=== PATIENT | female | born 2000 | race African-American/Black ===

== ENCOUNTER 2020-08-14 19:23 | Observation (INO) | payer OTHER, SELFPAY ==
[2020-08-14] VITALS (7 sets, daily range): BP systolic 91–142; BP diastolic 70–87; PULSE 91–115; BMI 33.7
--- NOTE | 2020-08-14 19:34 | OBADM ---
This patient, Lulu Lira, admitted to the OB room OB Post 117 for observation. Patient/family oriented to hospital policies and general routines including ID bracelet, bed and alarms, visiting hours, pain management, procedures, bathroom and other care routines, personal items, smoking policy, room service/diet, and visiting hours. Patient/Family are encouraged to report perceived risks to care and to ask questions if they do not understand what they are told or what they should do.
[2020-08-14 20:39] LABS: Basophils Percent Auto 0.2 % (0.2-1.2); Eosinophils Absolute Auto 0.1 K/mm3 (0-0.3); Eosinophils Percent Auto 0.9 % (0-4.4); Hematocrit 34.3 % (37.0-47.0); Hemoglobin 11.1 g/dL (12.0-15.0); Immature Granulocyte Absolute 0.07 K/mm3 (0.00-0.031); Immature Granulocyte Percent A 0.6 % (0-0.5); Lymphocytes Absolute Auto 1.72 K/mm3 (0.9-3.2); Lymphocytes Percent Auto 14.2 % (18.3-44.2); Mean Corpuscular HGB Conc 32.4 g/dl (32-36); Mean Corpuscular Hemoglobin 31.1 pg (26-34); Mean Corpuscular Volume 96.1 fl (80-100); Mean Platelet Volume 10.1 fl (7.4-10.4); Monocytes Absolute Auto 1.4 K/mm3 (0.1-0.6); Monocytes Percent Auto 11.4 % (2.6-8.5); Neutrophils Absolute Auto 8.8 K/mm3 (1.3-6.7); Neutrophils Percent Auto 72.7 % (45.5-73.1); Platelet Count Result 321 k/mm3 (150-375); Red Blood Count 3.57 M/mm3 (4.2-5.4); White Blood Count 12.1 K/mm3 (4.5-10.0)
[2020-08-14 20:41] LABS: Add Urine Microscopic? NO; Appearance Urine Clear (Clear); Bilirubin Urine Negative (Negative); Blood Urine Negative (Negative); Color Urine Straw (Yellow); Glucose Urine UA Negative (Negative); Ketones Urine Negative (Negative); Leukocyte Esterase Ur Negative LEU/UL (Negative); Nitrate Urine Negative (Negative); Protein Urine Negative (Negative); Specific Grav Ur 1.015 (1.001-1.035); Urobilinogen Urine Negative mg/dL (<2.0)
[2020-08-14 20:46] LABS: Creatinine Urine 57.4 mg/dL; Total Protein Urine Random 13 mg/dL; Ur Ttl Prot Creatinine Ratio 0.23 mg/mg (0-0.20)
[2020-08-14 20:51] LABS: Alanine Aminotransferase 14 U/L (4-35); Albumin Level 3.7 g/dL (3.7-5.6); Alkaline Phosphatase 143 U/L (45-116); Anion Gap 6 mmol/L (8-16); Aspartate Amino Transferase 21 U/L (14-36); Bilirubin,Total 0.6 mg/dL (0.2-1.3); Blood Urea Nitrogen 8 mg/dL (8-21); Calcium 9.2 mg/dL (8.9-10.7); Carbon Dioxide 25 mmol/L (22-30); Chloride 104 mmol/L (98-107); Estimated CRCL calculation 175 ml/min; Estimated Glomerular Filt Rate > 60; Glucose 94 mg/dL (65-105); Potassium 3.7 mmol/L (3.4-5.0); Sodium 135 mmol/L (134-143); Uric Acid 3.2 mg/dL (3.0-5.9)
--- NOTE | 2020-08-25 10:08 | PM.OBTRLD ---
OB - Triage/Final Diagnosis Evaluation Laboratory results: Laboratory Tests 08/14/20 08/14/20 08/14/20 20:26 20:26 20:26 WBC 12.1 H RBC 3.57 L Hgb 11.1 L Hct 34.3 L MCV 96.1 MCH 31.1 MCHC 32.4 RDW 13.0 Plt Count 321 MPV 10.1 Immature Gran % (Auto) 0.6 H Neut % (Auto) 72.7 Lymph % (Auto) 14.2 L Coffee % (Auto) 11.4 H Eos % (Auto) 0.9 Baso % (Auto) 0.2 Lymph # (Auto) 1.72 Coffee # (Auto) 1.4 H Eos # (Auto) 0.1 Baso # (Auto) 0.0 Abs Immat Gran (auto) 0.07 H Absolute Neuts (auto) 8.8 H Absolute Nucleated RBC 0.0 Nucleated RBC % 0.0 Sodium 135 Potassium 3.7 Chloride 104 Carbon Dioxide 25 Anion Gap 6 L BUN 8 Creatinine 0.50 L Estim Creat Clear Calc 175 Estimated GFR > 60 Glucose 94 Uric Acid 3.2 Calcium 9.2 Total Bilirubin 0.6 AST 21 ALT 14 Alkaline Phosphatase 143 H Total Protein 8.0 Albumin 3.7 Urine Color Straw Urine Appearance Clear Urine pH 6.0 Ur Specific [place] 1.015 Urine Protein Negative Urine Glucose (UA) Negative Urine Ketones Negative Ur Blood (Man) Negative Urine Nitrate Negative Urine Bilirubin Negative Urine Urobilinogen Negative Leukocyte Esterase Rfl Negative U Random Total Protein Urine Creatinine Protein/Creat Ratio 2 08/14/20 20:26 WBC RBC Hgb Hct MCV MCH MCHC RDW Plt Count MPV Immature Gran % (Auto) Neut % (Auto) Lymph % (Auto) Coffee % (Auto) Eos % (Auto) Baso % (Auto) Lymph # (Auto) Coffee # (Auto) Eos # (Auto) Baso # (Auto) Abs Immat Gran (auto) Absolute Neuts (auto) Absolute Nucleated RBC Nucleated RBC % Sodium Potassium Chloride Carbon Dioxide Anion Gap BUN Creatinine Estim Creat Clear Calc Estimated GFR Glucose Uric Acid Calcium Total Bilirubin AST ALT Alkaline Phosphatase Total Protein Albumin Urine Color Urine Appearance Urine pH Ur Specific [place] Urine Protein Urine Glucose (UA) Urine Ketones Ur Blood (Man) Urine Nitrate Urine Bilirubin Urine Urobilinogen Leukocyte Esterase Rfl U Random Total Protein 13 Urine Creatinine 57.4 Protein/Creat Ratio 2 0.23 H Final Diagnosis (1) Elevated blood pressure affecting in third trimester, antepartum: Code(s): O16.3 - Unspecified maternal hypertension, third trimester Status: Acute (2) Abdominal pain affecting : Code(s): O26.899 - Other specified related conditions, unspecified trimester; R10.9 - Unspecified abdominal pain Status: Acute
== END 2020-08-14 21:35 | disposition home or self-care (01) ==
PROVIDERS: Admitting Provider Obstetrics & Gynecology; Visit Provider Obstetrics & Gynecology
DX: O16.3 Unspecified maternal hypertension, third trimester (principal); O26.899 Other specified pregnancy related conditions, unspecified trimester; R10.9 Unspecified abdominal pain; Z3A.00 Weeks of gestation of pregnancy not specified
CPT/HCPCS: 36415; 80053; 81003; 82570; 84156; 84550; 85025; G0378; G0379

== ENCOUNTER 2020-10-12 09:49 | Inpatient (IN) | payer OTHER, SELFPAY ==
[2020-10-12] VITALS (96 sets, daily range): BP systolic 89–153; BP diastolic 44–109; PULSE 82–118; TEMP 36.6–37.2; O2SAT 97–100; BMI 42.0
--- NOTE | 2020-10-12 10:36 | WPDANESEPP ---
Anes - Eval Pre Procedure Procedure: labor epidural Date/Time: 10/12/20 10:36 Surgeon: Thania Salomon Preop Diagnosis: Pain during labor Pre Op Diagnosis: Labor Patient Data Age: 19 Gender: F Height: Weight: Allergies Allergy/AdvReac Type Severity Reaction Status Date / Time corn Allergy Swelling Verified 08/14/20 19:53 of Lip/Tongue/Throat shellfish derived Allergy Swelling Verified 08/14/20 19:53 of Lip/Tongue/Throat Home Medications Medication Instructions Recorded Confirmed Type Vitamin Plus Low Iron 1 tablet PO DAILY 08/14/20 08/14/20 History Patient hx anesthesia problems: none Family hx anesthesia problems: none Exam Day of Procedure 10/12/20 10:36 Patient weight: normal Heart: regular rate and rhythm Lungs: clear to auscultation and normal air movement Neurological: alert and oriented
[2020-10-12 10:40] LABS: Basophils Percent Auto 0.1 % (0.2-1.2); Eosinophils Absolute Auto 0.1 K/mm3 (0-0.3); Eosinophils Percent Auto 0.6 % (0-4.4); Hematocrit 33.2 % (37.0-47.0); Hemoglobin 10.8 g/dL (12.0-15.0); Immature Granulocyte Absolute 0.04 K/mm3 (0.00-0.031); Immature Granulocyte Percent A 0.4 % (0-0.5); Lymphocytes Absolute Auto 1.32 K/mm3 (0.9-3.2); Lymphocytes Percent Auto 13.8 % (18.3-44.2); Mean Corpuscular HGB Conc 32.5 g/dl (32-36); Mean Corpuscular Hemoglobin 29.9 pg (26-34); Mean Platelet Volume 10.1 fl (7.4-10.4); Monocytes Absolute Auto 1.4 K/mm3 (0.1-0.6); Monocytes Percent Auto 14.2 % (2.6-8.5); Neutrophils Absolute Auto 6.8 K/mm3 (1.3-6.7); Neutrophils Percent Auto 70.9 % (45.5-73.1); Platelet Count Result 350 k/mm3 (150-375); Red Blood Count 3.61 M/mm3 (4.2-5.4); Red Cell Distribution Width 13.5 % (11.5-14.5); White Blood Count 9.6 K/mm3 (4.5-10.0)
[2020-10-12] MEDS: LACTATED RINGERS 1,000 ML 125 ML IV CONT ×3 (10:43→19:07)
--- NOTE | 2020-10-12 10:52 | P.PNAN_ITS ---
Anes - Eval Pre Procedure Procedure: labor epidural Date/Time: 10/12/20 10:52 Preop Diagnosis: labor pain Pre Op Diagnosis: Labor Patient Data Age: 19 Gender: F Height: 5 ft 6 in Weight: 118 kg Last Vital Signs Pulse 96 10/12/20 10:46 BP 136/60 10/12/20 10:46 Allergies Allergy/AdvReac Type Severity Reaction Status Date / Time corn Allergy Swelling Verified 08/14/20 19:53 of Lip/Tongue/Throat shellfish derived Allergy Swelling Verified 08/14/20 19:53 of Lip/Tongue/Throat Home Medications Medication Instructions Recorded Confirmed Type Vitamin Plus Low Iron 1 tablet PO DAILY 08/14/20 08/14/20 History Laboratory Tests 10/12/20 10/12/20 10/12/20 10:24 10:24 10:27 WBC 9.6 K/mm3 K/mm3 (4.5-10.0) RBC 3.61 M/mm3 L M/mm3 (4.2-5.4) Hgb 10.8 g/dL L g/dL (12.0-15.0) Hct 33.2 % L % (37.0-47.0) MCV 92.0 fl fl (80-100) MCH 29.9 pg pg (26-34) MCHC 32.5 g/dl g/dl (32-36) RDW 13.5 % % (11.5-14.5) Plt Count 350 k/mm3 k/mm3 (150-375) MPV 10.1 fl fl (7.4-10.4) Immature Gran % (Auto) 0.4 % % (0-0.5) Neut % (Auto) 70.9 % % (45.5-73.1) Lymph % (Auto) 13.8 % L % (18.3-44.2) [place] % (Auto) 14.2 % H % (2.6-8.5) Eos % (Auto) 0.6 % % (0-4.4) Baso % (Auto) 0.1 % L % (0.2-1.2) Lymph # (Auto) 1.32 K/mm3 K/mm3 (0.9-3.2) [place] # (Auto) 1.4 K/mm3 H K/mm3 (0.1-0.6) Eos # (Auto) 0.1 K/mm3 K/mm3 (0-0.3) Baso # (Auto) 0.0 K/mm3 K/mm3 (0.0-0.1) Abs Immat Gran (auto) 0.04 K/mm3 H K/mm3 (0.00-0.031) Absolute Neuts (auto) 6.8 K/mm3 H K/mm3 (1.3-6.7) Absolute Nucleated RBC 0.0 K/mm3 K/mm3 (0.0-0.012) Nucleated RBC % 0.0 % % (0.0-0.2) RPR Pending HIV 1&2 Ab/P24 Ag 4thGn Pending Patient hx anesthesia problems: none Family hx anesthesia problems: none PMFSH Social History Social History Smoking status: Never smoker Substance use: never Gender identity (if verbalized by the patient): Female Sexual Orientation (if Verbalized by the Patient): Straight or Heterosexual Spiritual care concerns: No Exam Day of Procedure 10/12/20 10:52
[2020-10-12 11:36] LABS: HIV 1/2 Ab P24 Ag Result Negative (Negative)
--- NOTE | 2020-10-12 12:32 | PM.IMHP ---
H&P: HPI History of Present Illness Date/Time: 10/12/20 12:32 Chief Complaint: contractions Narrative: Lulu Lira is a 19 yo @ 39.2wks (ROEL 10/17/20) who presented to L&D in active labor; found to be 6cm, requesting epidural. She reports that her contractions started earlier this morning. Good movement. No LOF or VB. Her has been complicated by: - Late and limited care-- anatomy US not complete, repeat scheduled but not performed - Obesity - Varicella and CMV non-immune - Anemia on iron Review of Systems Review of Systems: All systems reviewed & are unremarkable except as noted in HPI and below (HPI) [facility] Social History Social History Smoking status: Never smoker Substance use: never Gender identity (if verbalized by the patient): Female Sexual Orientation (if Verbalized by the Patient): Straight or Heterosexual Spiritual care concerns: No Meds Home Medications and Allergies Home Medications Medication Instructions Recorded Confirmed Type Vitamin Plus Low Iron 1 tablet PO DAILY 08/14/20 08/14/20 History Allergies Allergy/AdvReac Type Severity Reaction Status Date / Time corn Allergy Swelling Verified 08/14/20 19:53 of Lip/Tongue/Throat shellfish derived Allergy Swelling Verified 08/14/20 19:53 of Lip/Tongue/Throat Vital Signs Vital Signs - 24 hr 10/12/20 10:45 10/12/20 10:46 10/12/20 10:56 Pulse Rate 101 H 96 Blood Pressure 144/109 H 136/60 Pulse Oximetry 100 10/12/20 11:00 10/12/20 11:01 10/12/20 11:02 Pulse Rate 96 96 Blood Pressure 131/78 138/75 Pulse Oximetry 100 10/12/20 11:06 10/12/20 11:10 10/12/20 11:14 Pulse Rate Blood Pressure Pulse Oximetry 100 100 100 10/12/20 11:16 10/12/20 11:17 10/12/20 11:19 Pulse Rate 98 105 H Blood Pressure 137/78 134/78 Pulse Oximetry 100 10/12/20 11:21 10/12/20 11:22 10/12/20 11:23 Pulse Rate 93 92 Blood Pressure 130/76 128/61 Pulse Oximetry 99 03/02/21 11:24 10/12/20 11:26 10/12/20 11:28 Pulse Rate 92 95 94 Blood Pressure 127/65 133/60 129/57 L Pulse Oximetry 98 10/12/20 11:31 10/12/20 11:33 10/12/20 11:34 Pulse Rate 89 92 Blood Pressure 131/61 124/67 Pulse Oximetry 100 10/12/20 11:37 10/12/20 11:38 10/12/20 11:40 Pulse Rate 96 85 Blood Pressure 133/69 130/78 Pulse Oximetry 100 10/12/20 11:43 10/12/20 11:46 10/12/20 11:48 Pulse Rate 91 93 Blood Pressure 128/71 129/69 Pulse Oximetry 99 100 10/12/20 11:49 10/12/20 11:52 10/12/20 11:53 Pulse Rate 102 H 96 Blood Pressure 130/57 L 109/59 L Pulse Oximetry 99 10/12/20 11:58 10/12/20 12:00 10/12/20 12:03 Pulse Rate 92 Blood Pressure 120/68 Pulse Oximetry 100 100 10/12/20 12:08 10/12/20 12:13 10/12/20 12:16 Pulse Rate 90 Blood Pressure 119/68 Pulse Oximetry 100 100 10/12/20 12:18 10/12/20 12:23 10/12/20 12:28 Pulse Rate Blood Pressure Pulse Oximetry 100 100 100 10/12/20 12:29 10/12/20 12:31 Pulse Rate 95 Blood Pressure 132/46 L Pulse Oximetry 99 Exam Const: General: cooperative and comfortable Nutritional Appearance: obese Resp: Effort & Inspection: normal respiratory effort and able to speak in complete sentences Cardio: Rate: regular rate GI: GI Palp: Yes Soft to palpation and No Tenderness to palpation present (GI) : Other: FHT's: 140's/ mod kristal/ + accels/ occasional variable decel, 1 late decel noted - Cat 2, reassuring TOCO:ctx's q3-4min Cervix 7/80/-2 Membranes: AROM, clear @ 1205 Presentation: cephalic Urinary Catheter: Urinary Catheter: patent and draining Skin: General skin exam: normal color Neuro: General: patient oriented x3 Extrem: General: normal to inspection Psych: Appearance: grossly normal Affect: normal affect Attitude: cooperative H&P: Results Labs Labs: Short CBC 10/12/20 Range/Un
--- NOTE | 2020-10-12 12:45 | WPDHPUPDATE1 ---
History and Physical Update Update Date/Time: 10/12/20 12:45 History and Physical has been reviewed, including an updated exam of the patient. There are NO changes in the patient's condition. Risks, benefits, and alternatives have been discussed and questions answered. Patient agrees to proceed with procedure.
[2020-10-12] MEDS: OXYTOCIN 30 UNITS/NS 500 ML 30 UNITS/500 ML BAG IV CONT (16:21)
--- NOTE | 2020-10-12 16:48 | PM.OBPNLAB ---
Pain Control Date/time seen: 10/12/20 16:48 Pain control: tolerating well and epidural Pelvic Exam Dilation (cm): 8 Effacement (%): 80 station: 0 Amniotic membrane status: Ruptured (AROM, clear 1205) Contractions Monitor mode: External Contraction frequency: 3 Contraction pattern: Regular Status status: Category ll Comments: 130's/ mod kristal/ + accels/ occasional variable/late-- overall reassuring Assessment and Plan Pitocin rate (mU/min): 2 Assessment: active labor Plan: begin patient augmentation Comments: protracted labor; pitocin augmentation started; station much lower than prior exam, now 0-- continue
[2020-10-12] MEDS: ONDANSETRON INJ 4 MG/2 ML VIAL IV PUSH (18:07)
--- NOTE | 2020-10-12 22:04 | P.PCNOB_ITS ---
OB - Delivery Note Procedure Delivery date: 10/12/20 events: Labor Augmentation Intrapartal events: Deceleration Induction method: none Delivery augmentation: rupture of membranes and pitocin Delivery monitor: external FHT and external uterine Route of delivery: Laceration Description: None Specimen: Yes Quantitative Blood Loss (ml): 100 Anesthesia type: Epidural Disposition: floor Narrative: Patient progressed to complete dilation. She pushed 2 contractions and delivered the head over intact perineum. No nuchal cord was palpated. She then delivered the shoulders and body without complications. The cord was noted to be loose but around the body and right lower leg. The had spontaneous cry and was immediately placed skin to skin. The umbilical cord was then clamped and cut. A segment of cord was collected for cord gases. The remaining cord blood was collected for typing. With Pitocin running and gentle downward traction on the umbilical cord, the placenta delivered without complications. Bimanual exam revealed a firm uterus with minimal bleeding. The cervix, vagina, perineum were examined and no lacerations were noted. The fundus was noted to be firm with minimal bleeding. Sponge, lap, instrument counts were correct at the end procedure. Mom and baby were left in the birthing suite in a stable condition. [place] Baby Date of : 10/12/20 Time of : 21:52 Weeks of gestation at delivery: 39 gender: Male Weight (pounds): 7 Weight (ounces): 2 presentation: vertex position: Left Occiput Anterior Placenta delivery description: Expressed cord vessel description: Loose, Around Body x1 and Around Extremity x1 score one minute: 9 score five minutes: 9
[2020-10-12] MEDS: OXYTOCIN 30 UNITS/NS 500 ML 30 UNITS/500 ML BAG 125 UNITS IV CONT (22:29)
[2020-10-13] VITALS (8 sets, daily range): BP systolic 130–143; BP diastolic 52–84; PULSE 90–106; RESP 16–20; TEMP 36.3–37.3; O2SAT 100
--- NOTE | 2020-10-13 00:14 | OBPPTRN ---
Patient transferred to post room #292 via wheelchair. Support person present. Oriented to unit, room, information board, rooming in, admission packet and security measures. Patient verbalizes understanding. with patient.
[2020-10-13] MEDS: IBUPROFEN 600 MG TABLET PO (04:03)
[2020-10-13 05:12] LABS: Hematocrit 32.3 % (37.0-47.0); Hemoglobin 10.3 g/dL (12.0-15.0)
[2020-10-13 08:43] LABS: Rapid Plasma Reagin Non-Reactive (NonReactive)
--- NOTE | 2020-10-13 10:20 | PC.NURSE ---
Consult with pt., mother states she has breast and bottle fed since . Mother reports had difficulties with latching and required bottle feeding. Mother states she will switch to bottle feeding only. Offered assist if she wishes or to initiate pumping. Mother declines offer of both.
--- NOTE | 2020-10-13 13:38 | PM.OBPNVD ---
OB - PN: Subj Subjective Date/time seen: 10/13/20 13:38 PPD#1 Lulu reports doing well today. Her pain is controlled. She reports her bleeding is light. She has tolerated regular diet w/o N/V. She has ambulated w/o symptoms of anemia. Voiding w/o issues. She is breast and bottle feeding. She would liek her son to get circumcised. she would like to go home as soon as possible. No CP, SOB, CHANDLER, vision changes, N/V, fever, chills, palpitations, or dizziness. OB - PN: Obj Data Labs CBC & Chem 7: 10/13/20 04:11 Labs: Laboratory Results - last 24 hr 10/12/20 10/13/20 10:24 04:11 Hgb 10.3 L Hct 32.3 L RPR Non-reactive OB - PN A/P Assessment and Plan (1) Status post normal vaginal delivery: Status: Acute Plan day: 1 Plan: routine care and discharge home (tomorrow morning) Comments: - circumcision performed w/o issue - take meds as prescribed; pelvic rest x6wks - pt would like to have depo shot prior to discharge home - ER return precautions discussed: HTN, bleeding, N/V/abd pain, fever - F/u in clinic in 4 wks Time Spent With Patient Time: Total time spent is greater than 50% in coordination of care (as documented) at patient's floor/unit and/or counseling patient: Review of Systems Review of Systems: All systems reviewed & are unremarkable except as noted in HPI and below (HPI) Exam Const: General: cooperative, comfortable and no acute distress Nutritional Appearance: obese Resp: Effort & Inspection: normal respiratory effort and able to speak in complete sentences Auscultation: clear to auscultation bilaterally Cardio: Rate: regular rate GI: GI Palp: No abdominal tenderness and Yes Soft to palpation Auscultation: normal bowel sounds : Other: fundus firm below umbilicus Skin: General skin exam: normal color Neuro: General: patient oriented x3 Extrem: General: normal to inspection Psych: Appearance: grossly normal Affect: normal affect Attitude: cooperative
[2020-10-14 08:30] VITALS: BP 132/76; PULSE 103; RESP 20; TEMP 36.9; O2SAT 100
[2020-10-14 09:00] VITALS: PULSE 103; RESP 20; O2SAT 100
[2020-10-14] MEDS: medroxyPROGESTERone ACETATE IM 150 MG/ML SYR IM (11:33)
--- NOTE | 2020-10-14 12:10 | PCCCNOTE ---
Care Coordination: Received referral regarding limited care, financial, and questionable support system concerns. Met with patient regarding these concerns; patient's mother was also present. Pt. reports she had limited care due to transportation issues. Pt. and baby to live at pt's mother's house in [place]. This is pt's first baby and pt. reports she has support from [facility] and pt's family including parents and siblings. Pt. reports she has all necessary baby supplies and is already set up with WIC. Pt. to inquire about [facility] [place]. CC provided pt. with financial, counseling, and resources. Pt. denies any further needs.
[2020-10-15 11:03] VITALS: BP 123/73; PULSE 93; RESP 20; TEMP 36.8; O2SAT 99
--- NOTE | 2020-10-19 12:47 | PM.OBDSVD ---
DS: Admitting Diagnosis Admitting Diagnosis Admitting Diagnosis: contractions; labor DS: Discharge Diagnosis Discharge Diagnosis (1) Active labor at term: Status: Acute (2) Status post normal vaginal delivery: Status: Acute OB - DS: Summary OB Procedures : Ultrasound OB Procedures Intrapartum: Spontaneous Vag Delivery OB Procedures: : None Peripartum Data Delivery Method: Natural Vaginal Laceration Description: None complications: none 1: Gender: Male Disposition of : home Status at Discharge Functional status at discharge: independent ambulation Overall status at discharge: patient is back to baseline Time Spent with Patient Time attestation: Total time spent providing and/or coordinating discharge services: Time spent: Less than 30 minutes Exam Const: General: cooperative, comfortable and no acute distress Nutritional Appearance: obese Resp: Effort & Inspection: normal respiratory effort and able to speak in complete sentences Auscultation: clear to auscultation bilaterally Cardio: Rate: regular rate GI: Inspection: normal to inspection and non-distended GI Palp: No abdominal tenderness and Yes Soft to palpation Auscultation: normal bowel sounds : Other: fundus firm at umbilicus Skin: General skin exam: normal color Neuro: General: patient oriented x3 Extrem: General: normal to inspection Psych: Appearance: grossly normal Affect: normal affect Attitude: cooperative DS: Data Data Completed and Pending Completed studies during hospitalization: Pending at discharge 10/12/20 21:56 Surgical [PTH] Routine Discharge Plan Discharge Attending physician on discharge: Thania Salomon Discharging Clinician: Thania Salomon Anticipated Discharge Date/Time: 10/14/20 10:00 Patient Disposition: Home, Self-Care Activity: pelvic rest Diet: regular Discharge Instructions: Education: Mom and Baby Guide Given to: Mother Follow-Up: Call your delivering provider's office for an appointment to be seen in: 4 Weeks Mom and baby should come to the [facility] for the follow-up appointment. Appointment Date/Time: October 15, 2020 at 11:00 am What to expect at your follow-up visit: Blood Pressure Check Physical Assessment Call [phone] if you are unable to keep your appointment time. BREAST CARE: * Wear a snug supportive bra. * For engorgement discomfort: Breast Feeding: * Apply warm moist washcloths * Express milk as needed to relieve engorgement * Wear loose clothing Bottle Feeding: * May apply ice packs * For sore nipples: * Identify correct latch-on * Apply warm moist washcloths before and after nursing * Air dry nipples after nursing * May apply Lansinoh cream to nipples PERINEAL CARE: * Until bleeding stops, use your haylie bottle after urinating * Change your pad frequently throughout the day * You may take sitz baths several times a day (fill your bathtub with warm water and soak for 20 minutes.) Do NOT bathe in the water * No tub baths until seen by your physician - You may shower ACTIVITY: * Rest as much as possible. * Do not exercise or lift anything heavier than your baby (such as laundry or other children.) * Avoid stairs or driving as much as possible for about 2 weeks. * Do not put anything into the vagina. No douching, tampons, or sexual activity until seen by physician. NOTIFY PHYSICIAN IF YOU HAVE ANY QUESTIONS OR IF ANY OF THE FOLLOWING SYMPTOMS OCCUR: * If your vaginal area becomes red, swollen, or more painful than what you have experienced in the hospital. * If your vaginal bleeding becomes foul smelling. * If your vaginal bleeding becomes more heavy than a period or if your bleeding changes from pink to bright red. However, you may pass an occasional walnut-size
== END 2020-10-14 12:05 | disposition home or self-care (01) | DRG 663 ==
LOC: ANHLDR 10:24 → ANHOB2 10-13 00:35
PROVIDERS: Admitting Provider Obstetrics & Gynecology; Visit Provider Obstetrics & Gynecology
DX: D64.9 Anemia, unspecified (principal); Z37.0 Single live birth; Z3A.39 39 weeks gestation of pregnancy; O99.02 Anemia complicating childbirth; O99.214 Obesity complicating childbirth; E66.9 Obesity, unspecified; O69.82X0 Labor and delivery complicated by other cord entanglement, without compression, not applicable or unspecified
CPT/HCPCS: 36415; 85014; 85018; 85025; 86592; 86703; 86850; 86900; 86901; 88307; A9270; G0432; J1050; J2405; J2590; J2795; J7120

== ENCOUNTER 2022-11-02 13:40 | Outpatient (CLI) | payer MEDICAID, SELFPAY ==
--- NOTE | ~2022-11-02 | US_ITS ---
EXAMINATION: US OB /maternal detail DATE: 11/02/2022 15:07 INDICATION: Delayed care, second trimester TECHNIQUE: Real-time ultrasound of the pelvis was performed. COMPARISON: None. FINDINGS: There is a single living fetus in vertex presentation. The placenta is anterior. heart rate is 145 beats per minute (bpm). The cervical length is 3.3 cm. cardiac activity and movement are noted. The amniotic fluid index is subjectively normal. The following anatomy was identified as normal: 4 chamber heart 3 vessel cord cord insertion kidneys urinary bladder stomach spine diaphragm ventricles cisterna magna cerebellum The following biometric data were obtained: Biparietal diameter (BPD): 6.8 cm; head circumference (HC): 25.6 cm; abdominal circumference (AC): 22 .9 cm; femur length (FL): 5.1 cm. These measurements are concordant. Estimated weight is 1064 g +/- 159 g, which correlates with the 72nd percentile when 02/04/2023 is used as estimated date of delivery. As single measurements, these parameters are each equal to the following estimated gestational ages w ith ranges of +/- 2 standard deviations: BPD: 27 weeks 4 days +/- 2 weeks 1 days. HC: 27 weeks 5 days +/- 2 weeks 0 days. AC: 27 weeks 2 days +/- 2 weeks 1 days. FL: 27 weeks 3 days +/- 2 weeks 1 days. estimated gestational age based solely on measurements from this exam is 27 weeks 4 days +/- 1 weeks 6 days. IMPRESSION: 1. Single living fetus in vertex presentation. 2. Estimated weight is 1064 g +/- 159 g, which correlates with the 72nd percentile when 02/05/20 is used as estimated date of delivery. Reviewed, dictated and finalized at location L. IMPRESSION: 1. Single living fetus in vertex presentation. 2. Estimated weight is 1064 g +/- 159 g, which correlates with the 72nd p ercentile when 02/04/2023 is used as estimated date of delivery.
== END 2022-11-02 13:41 | disposition home or self-care (01) ==
LOC: ANHIMG 13:44
DX: O09.32 Supervision of pregnancy with insufficient antenatal care, second trimester (principal); Z3A.27 27 weeks gestation of pregnancy
CPT/HCPCS: 76805